=== PATIENT | female | born 1945 | race Caucasian/White ===

== ENCOUNTER → 2017-09-03 | Emergency (ER) | payer OTHER ==
[~2017-09-03] VITALS: Ht 154.9 cm; Wt 53.5 kg
[~2017-09-03] MED LIST: BIOTIN 800 MCG1 EACH PO; CRESTOR10 MG PO; EVISTA60 MG PO; OSTERA TABLET1 EACH PO; PLAVIX75 MG PO; PROTONIX40 M1 PO; ROBINUL IJ; SYNTHROID50 MCG PO; TRANXENE T-TAB7.5 MG PO; TRILEPTAL300 MG PO; ZANTAC 7575 MG PO; ZYRTEC10 MG PO
== END | disposition home or self-care (01) ==
LOC: ER 11:52
DX: J06.9 Acute upper respiratory infection, unspecified (principal); R19.7 Diarrhea, unspecified

== ENCOUNTER 2019-06-05 15:11 | Emergency (ER) | payer OTHER ==
[~2019-06-05] VITALS: Ht 162.6 cm; Wt 54.4 kg
[2019-06-05] MEDS ORDERED: PRILOSEC OTC20 MG (15:41)
[2019-06-05] MEDS ORDERED: AMLODIPINE-OLM1 EACH (15:41)
[2019-06-05] MEDS ORDERED: ZANTAC150 M3 (15:42)
[2019-06-05] MEDS ORDERED: CALTRATE (15:43)
[2019-06-05] MEDS ORDERED: COMPLEJO B (15:44)
[2019-06-05] MEDS ORDERED: CLONAZEPAM0.5 M1 (15:44)
== END 2019-06-05 19:37 | disposition home or self-care (01) ==
LOC: ER 15:11
DX: G50.0 Trigeminal neuralgia (principal)

== ENCOUNTER 2024-08-02 08:07 | Outpatient (CLI) | payer OTHER ==
[~2024-08-02 08:07] MED LIST changes: +AMLODIPINE-OLM1 EACH; +CALTRATE; +CLONAZEPAM0.5 M1; +COMPLEJO B; +PRILOSEC OTC20 MG; +ZANTAC150 M3
[2024-08-02 09:22] LABS: HEMATOCRIT 39.5 % (36.0-45.00); HEMOGLOBIN 13.5 g/dL (12.0-15.00); MEAN CELL VOLUME 93.8 fL (80.00-100.00); MEAN CORPUSCULAR HEMOGLOBIN 32.2 pg (27.00-32.0); MEAN CORPUSCULAR HGB CONC 34.3 g/dl (32.0-36.0); PLATELET COUNT 192 K/uL (150-450); RED BLOOD COUNT 4.21 M/uL (4.00-6.00); RED CELL DISTRIBUTION WIDTH 14.3 % (11.5-14.5)
[2024-08-02 10:01] LABS: INR 1.08; PARTIAL THROMBOPLASTIN TIME 31.6 SECONDS (22.0-34.0); PROTHROMBIN TIME 11.7 SECONDS (9.0-11.5)
[2024-08-02 10:20] LABS: PH,URINE 5.5 (5.0-8.0); URINE APPEARANCE Clear; URINE BILIRRUBIN Negative (NEGATIVE); URINE BLOOD Small; URINE COLOR Yellow; URINE GLUCOSE Negative (NEGATIVE); URINE KETONE Negative (NEGATIVE); URINE LEUKOCYTE Small; URINE NITRATE Negative; URINE PROTEIN Negative (NEGATIVE); URINE UROBILINOGEN 0.2 E.U./dl
[2024-08-02 10:22] LABS: URINE EPITHELIAL CELLS 11.2 uL (0.0-38.8)
[2024-08-02] MEDS ORDERED: IRBESARTAN75 MG PO (10:24)
[2024-08-02] MEDS ORDERED: SYNTHROID75 MCG PO (10:25)
[2024-08-02] MEDS ORDERED: SERTRALINE20 MG/1 ML PO (10:25)
[2024-08-02] MEDS ORDERED: LAMOTRIGINE100 MG PO (10:25)
[2024-08-02 10:40] LABS: ALBUMIN 4.2 gm/dL (3.4-5.0); BILIRUBIN TOTAL 0.47 mg/dL (0.3-1.2); CALCIUM 9.3 mg/dL (8.5-10.1); CREATININE SERUM 0.75 mg/dL (0.55-1.02); GFR 74.93; GLOBULINA 4.3 G/DL (2.4-3.5); POTASSIUM 4.25 mEq/L (3.5-5.1); TOTAL PROTEIN 8.5 gm/dL (6.4-8.2)
== END 2024-08-02 09:27 | disposition home or self-care (01) ==
LOC: LAB 08:07
PROVIDERS: ATTEND Surgery
DX: D64.9 Anemia, unspecified (principal); I10 Essential (primary) hypertension; D68.9 Coagulation defect, unspecified; N39.0 Urinary tract infection, site not specified; Z20.822 Contact with and (suspected) exposure to COVID-19; E04.1 Nontoxic single thyroid nodule; E78.2 Mixed hyperlipidemia; E11.00 Type 2 diabetes mellitus with hyperosmolarity without nonketotic hyperglycemic-hyperosmolar coma (NKHHC)

== ENCOUNTER 2024-08-03 07:07 | Day surgery (SDC) | payer OTHER ==
[2024-08-02 10:27] VITALS: BP 160/77
[~2024-08-03] VITALS: Ht 154.9 cm; Wt 56.7 kg
[~2024-08-03 07:07] MED LIST changes: +IRBESARTAN75 MG PO; +LAMOTRIGINE100 MG PO; +SERTRALINE20 MG/1 ML PO; +SYNTHROID75 MCG PO
[2024-08-03] MEDS ORDERED: CEFAZOLIN SODIUM 1,000 MG VIAL ONE (09:33)
[2024-08-03] MEDS ORDERED: CHLORHEXIDINE GLUCONATE 120 ML BOTTLE TOP ONE (12:18)
[2024-08-03] MEDS ORDERED: METHYLENE BLUE 50MG/10ML AMP IV ONE (13:40)
[2024-08-03 18:00] VITALS: BP 145/65; O2SAT 100
== END 2024-08-03 17:35 | disposition home or self-care (01) ==
LOC: CIR.AMB 07:07
PROVIDERS: ATTEND Surgery
DX: C50.211 Malignant neoplasm of upper-inner quadrant of right female breast (principal); R59.0 Localized enlarged lymph nodes; N60.11 Diffuse cystic mastopathy of right breast; I10 Essential (primary) hypertension; E03.8 Other specified hypothyroidism; F41.9 Anxiety disorder, unspecified; F32.9 Major depressive disorder, single episode, unspecified; F41.0 Panic disorder [episodic paroxysmal anxiety]; K29.70 Gastritis, unspecified, without bleeding

== ENCOUNTER 2024-08-03 23:56 | Emergency (ER) | payer OTHER ==
[~2024-08-03] VITALS: Ht 154.9 cm; Wt 56.7 kg
== END 2024-08-04 | disposition left against medical advice (07) ==
LOC: ER 23:59
DX: Z53.21 Procedure and treatment not carried out due to patient leaving prior to being seen by health care provider (principal)

== ENCOUNTER 2024-09-13 08:13 | Outpatient (CLI) | payer OTHER | END 2024-09-13 08:14 | disposition home or self-care (01) | LOC: NUCLEAR 08:13 | PROVIDERS: ATTEND Internal Medicine | DX: C50.211 Malignant neoplasm of upper-inner quadrant of right female breast (principal); N18.1 Chronic kidney disease, stage 1 | CPT/HCPCS: 78815; A9552 ==

== ENCOUNTER 2024-11-23 06:36 | Day surgery (SDC) | payer OTHER ==
[2024-11-21 14:38] VITALS: BP 160/72
[~2024-11-23] VITALS: Ht 152.4 cm; Wt 57.6 kg
[~2024-11-23 06:36] MED LIST changes: +PEPCID AC20 MG PO
[2024-11-23] MEDS ORDERED: LIDOCAINE HCL 1%/EPINEPHRINE 20ML VIAL IJ ONE (10:30)
[2024-11-23] MEDS ORDERED: CEFAZOLIN SODIUM 1,000 MG VIAL IV ONE (10:30)
[2024-11-23] MEDS ORDERED: BUPIVACAINE HCL/PF 0.25% 30ML VIAL InF ONE (10:30)
[2024-11-23] MEDS ORDERED: MORPHINE SULFATE 2 MG/ML CARTRIDGE IV ONE (12:15)
[2024-11-23] MEDS ORDERED: TRAM1TAB98 PO (14:01)
== END 2024-11-23 15:55 | disposition home or self-care (01) ==
LOC: CIR.AMB 06:36
PROVIDERS: ATTEND Surgery
DX: C50.211 Malignant neoplasm of upper-inner quadrant of right female breast (principal); I10 Essential (primary) hypertension
CPT/HCPCS: 36561; C1751

== ENCOUNTER 2025-05-14 10:15 | Inpatient (IN) | payer OTHER ==
[~2025-05-14] VITALS: Ht 154.9 cm; Wt 54.0 kg
[~2025-05-14 10:15] MED LIST changes: +TRAM1TAB98 PO
[2025-05-21] MEDS ORDERED: BUPIVACAINE HCL 30 ML VIAL IJ ONE (13:15)
[2025-05-21] MEDS ORDERED: LIDOCAINE HCL 1%/EPINEPHRINE 20ML VIAL IJ ONE (13:15)
[2025-05-21] MEDS ORDERED: CHLORHEXIDINE GLUCONATE 120 ML BOTTLE TOP ONE (13:15)
[2025-05-21] MEDS ORDERED: CEFTRIAXONE SODIUM 2,000 MG VIAL IV ONE (13:30)
[2025-05-21] MEDS ORDERED: METRONIDAZOLE/SODIUM CHLORIDE 500 MG/100 ML PIGGYBACK IV ONE (13:30)
[2025-05-21] MEDS ORDERED: SUGAMMADEX SODIUM 200 MG/2 ML VIAL IV ONE (13:30)
[2025-05-21] MEDS ORDERED: OxyCODONE HCL 5 MG TABLET (ROXICODONE) PO PRN (13:45)
[2025-05-21] MEDS ORDERED: ONDANSETRON HCL 2 MG/ML VIAL IV PRN (13:45)
[2025-05-21] MEDS ORDERED: MORPHINE SULFATE 4 MG/ML CARTRIDGE IV PRN (13:45)
[2025-05-21] MEDS ORDERED: RINGERS SOLUTION,LACTATED 1,000 ML IV SCH (13:45)
[2025-05-21] MEDS ORDERED: DEXTROSE 50 % IN WATER 0.5 G/ML DISP.SYRIN IV PRN (13:45)
[2025-05-21] MEDS ORDERED: ACETAMINOPHEN 500 MG GEL..CAP PO SCH (14:00)
[2025-05-21] MEDS ORDERED: HYOSCYAMINE SULFATE 0.125 MG TAB.SUBL SL SCH (17:00)
[2025-05-21] MEDS ORDERED: GABAPENTIN 300 MG CAPSULE PO SCH (17:00)
[2025-05-21] MEDS ORDERED: GABAPENTIN 300 MG CAPSULE PO ONE (18:25)
[2025-05-21] MEDS ORDERED: ACETAMINOPHEN 500 MG GEL..CAP PO ONE (18:25)
[2025-05-21] MEDS ORDERED: HYOSCYAMINE SULFATE 0.125 MG TAB.SUBL ONE (18:25)
[2025-05-21] MEDS ORDERED: KETOROLAC TROMETHAMINE 30 MG VIAL ONE (18:26)
[2025-05-21] MEDS ORDERED: ONDANSETRON HCL 2 MG/ML VIAL ONE (18:53)
[2025-05-21 20:24] LABS: BASO % 0.4 % (0.1-1.2); EOS # 0.04 (0.04-0.54); EOS % 0.3 % (0.7-7.0); LYMPH # 0.53 (1.18-3.74); LYMPH % 3.7 % (19.3-53.1); MEAN PLATELET VOLUME 13.00 fl (9.4-12.4); MONO # 0.60 (0.24-0.82); MONO % 4.2 % (4.7-12.5); NEUT # 12.98 (1.56-6.13); NEUT % 90.9 % (34.0-71.1); RED CELL DISTRIBUTION WIDTH 14.9 % (11.6-14.4)
[2025-05-21 20:25] LABS: BAND MAN 7.0 %; LYMPHOCYTE MAN 4.0 %; MONOCYTE MAN 3.0 %; NEUTROPHILS MAN 86.0 %
[2025-05-21 20:29] LABS: BUN CREA RATIO 16.0 (7.0-25.0); CREATININE SERUM 0.63 mg/dL (0.55-1.02); GFR 91.39; GLUCOSE FASTING 112.0 mg/dL (65-100); OSMOLALITY SERUM 279.0 MOSM/KG (275-295)
[2025-05-21] MEDS ORDERED: PATIENTS OWN MEDICATION (MEDICAMENTO EN PISO) PO SCH ×2 (21:00)
[2025-05-21] MEDS ORDERED: FAMOTIDINE/PF 20 MG/2 ML VIAL IV PUSH SCH (21:00)
[2025-05-21 23:54] VITALS: BP 137/63; O2SAT 96
[2025-05-22] MEDS ORDERED: PATIENTS OWN MEDICATION (MEDICAMENTO EN PISO) PO SCH (06:00)
[2025-05-22 06:56] LABS: BASO % 0.2 % (0.1-1.2); EOS # 0.01 (0.04-0.54); EOS % 0.1 % (0.7-7.0); LYMPH # 0.94 (1.18-3.74); LYMPH % 6.2 % (19.3-53.1); MEAN PLATELET VOLUME 11.20 fl (9.4-12.4); MONO # 0.71 (0.24-0.82); MONO % 4.7 % (4.7-12.5); NEUT # 13.46 (1.56-6.13); NEUT % 88.5 % (34.0-71.1); RED CELL DISTRIBUTION WIDTH 14.6 % (11.6-14.4)
[2025-05-22 07:33] LABS: BUN CREA RATIO 11.0 (7.0-25.0); CREATININE SERUM 0.7 mg/dL (0.55-1.02); GFR 80.93; GLUCOSE FASTING 115.0 mg/dL (65-100); OSMOLALITY SERUM 273.0 MOSM/KG (275-295)
[2025-05-22 08:00] VITALS: BP 132/62; O2SAT 100
[2025-05-22] MEDS ORDERED: PIPERACILLIN/TAZOBACTAM SODIUM 3.375 GM in DEXTROSE 5 % IN WATER 100 ML IV SCH (08:20)
[2025-05-22] MEDS ORDERED: SERTRALINE HCL 25 MG TABLET PO SCH (09:00)
[2025-05-22] MEDS ORDERED: IRBESARTAN 75 MG TABLET PO SCH (09:00)
[2025-05-22] MEDS ORDERED: MAGNESIUM SULFATE IN WATER 50 ML IV NR (10:45)
[2025-05-22] MEDS ORDERED: POTASSIUM CHLORIDE 20MEQ/100ML H2O PB IV NR (10:45)
[2025-05-22 16:30] VITALS: BP 132/69; O2SAT 96
[2025-05-22] MEDS ORDERED: ROSUVASTATIN CALCIUM 10 MG TABLET PO SCH (17:00)
[2025-05-22] MEDS ORDERED: ENOXAPARIN SODIUM 40 MG/0.4 ML SYRINGE SUBCUTANEO SCH (17:00)
[2025-05-23 00:48] VITALS: BP 121/63; O2SAT 97
[2025-05-23 07:16] LABS: URINE APPEARANCE Clear; URINE BILIRRUBIN Negative (NEGATIVE); URINE BLOOD Large; URINE COLOR Yellow; URINE GLUCOSE Negative (NEGATIVE); URINE KETONE Negative (NEGATIVE); URINE LEUKOCYTE Negative; URINE NITRATE Negative; URINE PROTEIN Trace (NEGATIVE); URINE UROBILINOGEN 0.2 E.U./dl
[2025-05-23 07:17] LABS: URINE BACTERIA 13.1 uL (0.0-1933); URINE EPITHELIAL CELLS 8.1 uL (0.0-38.8); URINE RBC 191.3 uL (0.0-20.8); URINE WBC 7.9 uL (0.0-23.2)
[2025-05-23 07:20] LABS: URINE CAST 0.29 uL (0.0-1.40)
[2025-05-23 08:00] VITALS: BP 161/71; O2SAT 97
[2025-05-23] MEDS ORDERED: ENOXAPARIN SODIUM 40 MG/0.4 ML SYRINGE SUBCUTANEO SCH (09:00)
[2025-05-23 13:07] LABS: BASO % 0.2 % (0.1-1.2); EOS # 0.35 (0.04-0.54); EOS % 3.2 % (0.7-7.0); LYMPH # 0.78 (1.18-3.74); LYMPH % 7.1 % (19.3-53.1); MEAN PLATELET VOLUME 11.60 fl (9.4-12.4); MONO # 0.62 (0.24-0.82); MONO % 5.7 % (4.7-12.5); NEUT # 9.11 (1.56-6.13); NEUT % 83.3 % (34.0-71.1); RED CELL DISTRIBUTION WIDTH 14.6 % (11.6-14.4)
[2025-05-23 13:47] LABS: BUN CREA RATIO 11.0 (7.0-25.0); CREATININE SERUM 0.74 mg/dL (0.55-1.02); GFR 75.9; GLUCOSE FASTING 111.0 mg/dL (65-100); OSMOLALITY SERUM 277.0 MOSM/KG (275-295)
[2025-05-23] MEDS ORDERED: POTASSIUM PHOS,M-BASIC-D-BASIC 3 MM/ML VIAL IV NR (14:00)
[2025-05-23] MEDS ORDERED: POTASSIUM CHLORIDE IN WATER 100 ML IV NR (14:30)
[2025-05-23 18:02] VITALS: BP 168/63; O2SAT 96
[2025-05-24 02:03] VITALS: BP 154/78; O2SAT 96
[2025-05-24 08:00] VITALS: BP 176/67; O2SAT 98
[2025-05-24 18:00] VITALS: BP 160/72; O2SAT 96
[2025-05-25 01:14] VITALS: BP 149/84; O2SAT 99
[2025-05-25 09:40] VITALS: BP 159/81; O2SAT 97
[2025-05-25 17:26] VITALS: BP 171/74; O2SAT 98
[2025-05-26 00:30] VITALS: BP 163/81; O2SAT 100
[2025-05-26 08:39] VITALS: BP 138/62; O2SAT 99
[2025-05-26] MEDS ORDERED: TYLENOL ARTHRI650 MG PO (12:06)
[2025-05-26] MEDS ORDERED: NEURONTIN300 MG PO (12:06)
[2025-05-26 16:00] VITALS: BP 184/78; O2SAT 100
== END 2025-05-26 20:21 | disposition home or self-care (01) | DRG 982 ==
LOC: O/R 05-21 07:00 → SURH 05-21 07:00
PROVIDERS: Internal Medicine Geriatric Medicine; ADMIT Surgery; ATTEND Surgery
PROC: 0DTN4ZZ Resection of Sigmoid Colon, Percutaneous Endoscopic Approach (ICD-10-PCS; 2025-05-21)
PROC: 0T7D4DZ Dilation of Urethra with Intraluminal Device, Percutaneous Endoscopic Approach (ICD-10-PCS; 2025-05-21)
PROC: 0DBP4ZZ Excision of Rectum, Percutaneous Endoscopic Approach (ICD-10-PCS; principal; 2025-05-21 07:00)
PROC: BW2GYZZ Computerized Tomography (CT Scan) of Pelvic Region using Other Contrast (ICD-10-PCS; 2025-05-24)
DX: C50.211 Malignant neoplasm of upper-inner quadrant of right female breast (principal); K57.20 Diverticulitis of large intestine with perforation and abscess without bleeding; N32.1 Vesicointestinal fistula; N39.0 Urinary tract infection, site not specified